=== PATIENT | male | born 1965 | race Caucasian/White ===

== ENCOUNTER 2018-02-08 12:38 | Emergency (ER) | payer SELFPAY ==
[~2018-02-08] VITALS: Ht 180.3 cm; Wt 117.9 kg
[2018-02-08] MEDS ORDERED: TETANUS/DIPHTHERIA TOX ADULT 0.5 ML SYR IM ONE (13:00)
--- NOTE | 2018-02-08 13:35 | Diagnostic Imaging Report ---
PROCEDURE:HAND 2 VIEW RT - HOPD COMPARISON:None. INDICATIONS:r/o foreign body glass FINDINGS: No acute displaced fracture or dislocation. No lytic or blastic lesions. No radiopaque foreign bodies are identified. Joint spaces are preserved. Mild soft tissue swelling in the ulnar aspect of the hand as well as the thenar area. CONCLUSION: No radiopaque foreign bodies are identified. Refugio Ortiz M.D. Dictated by: Refugio Ortiz M.D. on 02/08/2018 at 13:42 Electronically approved by: Refugio Ortiz M.D. on 02/08/2018 at 13:42
== END 2018-02-08 15:37 | disposition home or self-care (01) ==
LOC: FSED 12:38
DX: S61.011A Laceration without foreign body of right thumb without damage to nail, initial encounter (principal); W45.8XXA Other foreign body or object entering through skin, initial encounter; Y99.0 Civilian activity done for income or pay
CPT/HCPCS: 90471; 99284